=== PATIENT | female | born 1975 | race Caucasian/White ===

== ENCOUNTER → 2016-06-01 | Outpatient (CLI) | payer OTHER ==
[~2016-06-01] VITALS: Ht 172.7 cm; Wt 103.4 kg
[2016-06-01] VITALS (7 sets, daily range): BP systolic 96–112; BP diastolic 43–74
[~2016-06-01] MED LIST: ABILIFY2 MG PO; ENDOCET 5-3251 EACH PO; IBUPROFEN800 MG PO; LEVOCETIRIZINE D5 MG PO; MOTRIN800 MG PO; Motrin PO; NATALCARE RX1 TABLE1 PO; PRENAPLUS TABL1 EACH PO; PROZAC40 MG PO; PROzac PO; Percocet 5/325,Endoc PO; SLOW FE142 M1 PO; ZOLOFT50 MG PO
[2016-06-01 23:02] LABS: HEMATOCRIT 31.6 % (36.0-46.0); MCH 22.3 PG (29.0-34.0); MCHC 29.4 G/DL (30.0-36.0); MCV 75.8 FL (83-99); MEAN PLAT.VOLUME 10.4 uM^3 (9.5-12.4); PLATELET COUNT 240 K/uL (156-360); RBC DIS.WIDTH-SD 49.1 % (39-53); RED BLOOD COUNT 4.17 M/uL (3.80-5.20)
[2016-06-01 23:26] LABS: WHITE BLOOD COUNT 5.3 K/uL (4.1-10.2)
== END | disposition home or self-care (01) ==
LOC: IVINF 16:00
PROVIDERS: Internal Medicine
DX: D64.9 Anemia, unspecified (principal)
CPT/HCPCS: 36415; 36430; 85027; 86850; 86900; 86901; 86920; 86999; P9016